=== PATIENT | female | born 1990 | race Caucasian/White ===

== ENCOUNTER → 2016-08-23 | Outpatient (REF) | payer BC ==
[2016-08-23 12:42] LABS: INR 1.05
[2016-08-30 00:06] LABS: F8 ACTIVITY FOR F8 PANEL 74 % (57-163); F8 ACTIVITY vWB FOR F8 PANEL 67 % (50-200); F8 ANTIGEN FOR F8 PANEL 74 % (50-200); INTERPRETATION: Note (.)
== END ==
LOC: M LAB REF 12:15
PROVIDERS: ATTEND Internal Medicine Medical Oncology
DX: D68.9 Coagulation defect, unspecified (principal)

== ENCOUNTER → 2016-10-31 | Outpatient (REF) | payer BC | LOC: M LAB REF 16:29 | PROVIDERS: ATTEND Internal Medicine Medical Oncology | DX: D69.1 Qualitative platelet defects (principal) ==

== ENCOUNTER → 2019-03-02 | Outpatient (REF) | payer BC | LOC: M LAB LCGH 12:21 | PROVIDERS: ATTEND Obstetrics & Gynecology | DX: Z12.4 Encounter for screening for malignant neoplasm of cervix (principal) ==